=== PATIENT | male | born 1975 | race African-American/Black ===

== ENCOUNTER 2024-09-28 08:54 | Emergency (ER) | payer MEDICAID ==
[~2024-09-28] VITALS: Ht 175.3 cm; Wt 100.2 kg
[2024-09-28 09:06] VITALS: O2SAT 100
[2024-09-28 09:09] VITALS: BP 135/87; PULSE 106; RESP 20; TEMP 98.1; O2SAT 99
[2024-09-28 10:12] LABS: BASOPHILS % 0.7 % (0.0-2.0); EOSINOPHILS % 2.8 % (0.0-5.0); HEMATOCRIT. 40.9 % (42.0-52.0); HEMOGLOBIN. 13.3 g/dL (14.0-18.0); LYMPHOCYTES % 24.1 % (20.0-50.0); MEAN CORPUSCULAR HEMOGLOBIN 26.9 pg (28.0-32.0); MEAN CORPUSCULAR HGB CONC 32.4 g/dL (31.0-37.0); MEAN PLATELET VOLUME 7.5 fl (7.4-10.4); MONOCYTES % 8.3 % (2.0-8.0); NEUTROPHILS % 64.1 % (40.0-76.0); PLATELET 318 x1000/uL (130-400); RED BLOOD CELL COUNT 4.93 mill/uL (4.7-6.1); RED CELL DISTRIBUTION WIDTH 15.3 % (11.6-14.6); WHITE BLOOD COUNT 10.3 x1000/uL (4.5-11.0)
[2024-09-28 10:22] LABS: CHLORIDE 105 mEq/L (98-107); POTASSIUM 4.7 mEq/L (3.5-5.1); SODIUM 137 mEq/L (136-145)
[2024-09-28 10:23] LABS: CALCIUM 9.5 mg/dL (8.7-10.4); CARBON DIOXIDE 25 mEq/L (21-32)
[2024-09-28 10:28] LABS: CREATININE 1.1 mg/dL (0.6-1.3); GLUCOSE 178 mg/dL (70-105); UREA NITROGEN BLOOD 18 mg/dL (9-23)
[2024-09-28 10:32] LABS: TROPONIN I HIGH SENSITIVITY < 4 ng/L (3.0-53)
== END 2024-09-28 11:42 | disposition home or self-care (01) ==
LOC: ER 09:05
DX: B34.9 Viral infection, unspecified (principal); E11.9 Type 2 diabetes mellitus without complications; E78.00 Pure hypercholesterolemia, unspecified; I10 Essential (primary) hypertension; Z88.5 Allergy status to narcotic agent
CPT/HCPCS: 36415; 71045; 80048; 84484; 85025; 93005; 99285